=== PATIENT | male | born 1970 | race Caucasian/White ===

== ENCOUNTER 2020-09-27 14:15 | Inpatient (IN) ==
[2020-09-27] MEDS ORDERED: Morphine Sulfate 2 MG/ML SYRINGE IVP ONE (16:41)
[2020-09-27] MEDS ORDERED: Isovue-370 500 ML BOTTLE IVP ONE (17:19)
[2020-09-27] MEDS ORDERED: Perflutren Lipid Microsphere 1.3 ML in 0.9 % Sodium Chloride 8.7 ML IVP PRN (17:28)
[2020-09-27] MEDS ORDERED: Nitroglycerin 0.4 MG TAB.SUBL SL PRN (17:29)
[2020-09-27] MEDS ORDERED: Ondansetron 4 MG/2 ML VIAL IVP PRN (17:30)
[2020-09-27] MEDS ORDERED: Naloxone 0.4 MG/ML INJ IVP PRN (17:30)
[2020-09-27] MEDS ORDERED: 0.9 % Sodium Chloride 1,000 ML IVC SCH (18:45)
[2020-09-27] MEDS ORDERED: Morphine Sulfate 2 MG/ML SYRINGE IVP PRN (20:30)
[2020-09-27] MEDS ORDERED: Acetaminophen 325 MG TABLET PO ONE (23:41)
[2020-09-27] MEDS: *HR* Heparin 5,000 UNIT/ML VIAL SQ SCH (23:58)
[2020-09-28 00:11] LABS: Bilirubin,Urine Negative (Negative); Blood,Urine Trace (Negative); Clarity,Urine Clear (Clear); Color,Urine Colorless (Yellow); Glucose,Urine (UA) 30 mg/dL (Normal); Ketones,Urine Negative (Negative); Leukocyte Esterase,Urine Negative (Negative); Mucus,Urine Few per lpf (None-Few); Nitrite,Urine Negative (Negative); PH,Urine 6.5 pH Units (5.0-8.0); Protein,Urine Negative (Neg-Trace); Specific Gravity,Urine > 1.030 (1.010-1.025); Urobilinogen,Urine Normal (Normal); WBC,Urine 0-3 per hpf (0-3)
[2020-09-28 02:28] LABS: Hematocrit 41.8 % (37.5-50.1); Hemoglobin 13.7 g/dL (12.9-16.9); Mean Corpuscular HGB Conc 32.8 g/dL (31.6-35.5); Mean Corpuscular Hemoglobin 29.5 pg (28.0-33.3); Mean Corpuscular Volume 89.9 fL (83.0-100.0); Platelet Count 256 K/mcL (140-400); Red Blood Count 4.65 M/mcL (4.19-5.50); White Blood Count 11.4 K/mcL (4.3-11.1)
[2020-09-28 02:43] LABS: BUN/Creatinine Ratio 16 (6-26); Blood Urea Nitrogen 17 mg/dL (6-20); Calcium 8.6 mg/dL (8.6-10.3); Carbon Dioxide 26 mEq/L (23-29); Chloride 100 mEq/L (98-107); Chol/HDL Ratio 5.6 (0-4.9); Cholesterol 191 mg/dL (< 200); Glucose 131 mg/dL (70-105); HDL Cholesterol 34 mg/dL (40-59); LDL Cholesterol,Calculated 117 mg/dL (< 100); Magnesium 1.7 mg/dL (1.6-2.6); Osmolality,Calculated 281 (280-300); Potassium 3.7 mEq/L (3.5-5.1); Sodium 134 mEq/L (136-145); Triglycerides 200 mg/dL (< 150); eGFR For African Americans > 60 (> 60); eGFR For Non-African Americans > 60 (> 60)
[2020-09-28 04:09] LABS: Estimated Average Glucose 126 mg/dl
[2020-09-28] MEDS: *HR* Heparin 5,000 UNIT/ML VIAL SQ SCH ×3 (05:34→20:53)
[2020-09-28] MEDS ORDERED: Regadenoson 0.4 MG/5 ML SYRINGE IVP ONE (08:56)
[2020-09-28] MEDS ORDERED: *HR* Midazolam HCl 2 MG/2 ML VIAL ONE (10:18)
[2020-09-28] MEDS ORDERED: *HR* FentaNYL (PF) 100 MCG/2 ML VIAL ONE (10:19)
[2020-09-28] MEDS ORDERED: Nitroglycerin 1,000 MCG/10 ML VIAL IV ONE (10:19)
[2020-09-28] MEDS ORDERED: 0.9 % Sodium Chloride 1,000 ML ONE (10:19)
[2020-09-28] MEDS ORDERED: Heparin 1,000 UNITS/500 mL 500 ML ONE (10:19)
[2020-09-28] MEDS ORDERED: *HR* Heparin 10,000 UNIT/10 ML VIAL ONE (10:19)
[2020-09-28] MEDS ORDERED: ISOVUE-370 200 ML INFUS..BTL ONE (10:19)
[2020-09-28] MEDS: Aspirin Enteric Coated 81 MG Tablet PO SCH (11:45)
[2020-09-28] MEDS: 0.9 % Sodium Chloride 1,000 ML IVC SCH ×2 (11:45→20:52)
[2020-09-28] MEDS: Colchicine 0.6 MG TABLET PO SCH ×2 (12:46→20:50)
[2020-09-28] MEDS: Ibuprofen 600 MG TABLET PO SCH ×2 (14:12→20:49)
[2020-09-28] MEDS ORDERED: Ibuprofen 600 MG TABLET PO SCH (16:00)
[2020-09-28 16:19] LABS: Adenovirus Not Detected (Not Detect); Coronavirus 229E Not Detected (Not Detect); Coronavirus HKU1 Not Detected (Not Detect); Coronavirus NL63 Not Detected (Not Detect); Coronavirus OC43 Not Detected (Not Detect); Human Metapneumovirus Not Detected (Not Detect); Human Rhinovirus/Enterovirus Not Detected (Not Detect); Influenza A Subtype 2009 H1 Not Detected (Not Detect); SARS-CoV-2 Not Detected (Not Detect)
[2020-09-28 16:20] LABS: Bordetella Pertussis Not Detected (Not Detect); Chlamydophila pneumoniae Not Detected (Not Detect); Influenza B Not Detected (Not Detect); Mycoplasma pneumoniae Not Detected (Not Detect); Parainfluenza Virus 1 Not Detected (Not Detect); Parainfluenza Virus 2 Not Detected (Not Detect); Parainfluenza Virus 3 Not Detected (Not Detect); Parainfluenza Virus 4 Not Detected (Not Detect); Respiratory Syncytial Virus Not Detected (Not Detect)
[2020-09-29 05:39] LABS: Hematocrit 43.8 % (37.5-50.1); Hemoglobin 14.7 g/dL (12.9-16.9); Mean Corpuscular HGB Conc 33.6 g/dL (31.6-35.5); Mean Corpuscular Hemoglobin 30.1 pg (28.0-33.3); Mean Corpuscular Volume 89.8 fL (83.0-100.0); Mean Platelet Volume 10.5 fL (9.4-12.4); Platelet Count 245 K/mcL (140-400); Red Blood Count 4.88 M/mcL (4.19-5.50); Red Cell Distribution Width 12.2 % (11.5-14.5); White Blood Count 6.2 K/mcL (4.3-11.1)
[2020-09-29 06:01] LABS: BUN/Creatinine Ratio 13 (6-26); Blood Urea Nitrogen 14 mg/dL (6-20); Calcium 8.9 mg/dL (8.6-10.3); Carbon Dioxide 26 mEq/L (23-29); Chloride 103 mEq/L (98-107); Glucose 123 mg/dL (70-105); Osmolality,Calculated 282 (280-300); Potassium 4.4 mEq/L (3.5-5.1); Sodium 135 mEq/L (136-145); eGFR For African Americans > 60 (> 60); eGFR For Non-African Americans > 60 (> 60)
[2020-09-29] MEDS: Ibuprofen 600 MG TABLET PO SCH (06:14)
[2020-09-29] MEDS: *HR* Heparin 5,000 UNIT/ML VIAL SQ SCH (06:15)
[2020-09-29] MEDS: 0.9 % Sodium Chloride 1,000 ML IVC SCH (08:04)
[2020-09-29] MEDS: Aspirin Enteric Coated 81 MG Tablet PO SCH (08:13)
[2020-09-29] MEDS: Colchicine 0.6 MG TABLET PO SCH (08:17)
[2020-09-29 11:15] VITALS: BP 117/77
== END 2020-09-29 14:25 | disposition home or self-care (01) | DRG 287 ==
LOC: 3BNU → SUATTDRO 16:21
PROVIDERS: ADMIT Family Medicine; ATTEND Internal Medicine